=== PATIENT | female | born 1990 | race Caucasian/White ===

== ENCOUNTER → 2019-08-03 10:06 | Outpatient (CLI) | payer OTHER, SELFPAY ==
[2019-08-03 09:11] VITALS: BMI 23.6
[2019-08-03 10:57] LABS: Absolute Lymphocyte Count 1.35 X10^3/uL (0.83-4.51); Absolute Neutrophil Count 5.3 X10^3/uL (2.0-7.7); Basophil# 0.01 X10^3/uL; Basophil% 0.1 % (0-1); Eosinophil# 0.02 X10^3/uL; Eosinophils% 0.3 % (0-5); Hematocrit 39.4 % (37-47); Hemoglobin 13.2 g/dL (12.0-15.0); Lymphocyte # 1.35 X10^3/ul (4.0); Lymphocyte % 18.7 % (19-41); Mean Corp Hgb Conc 33.5 g/dL (32-36); Mean Corpuscular Hgb 29.9 pg (27.0-32.0); Mean Corpuscular Volume 89.1 fL (81-99); Mean Platelet Vol. 10.8 fl (6.2-12.0); Monocyte# 0.47 X10^3/uL; Monocyte% 6.5 % (0-10); NRBC Flagged by Analyzer 0 % (0-5); Neutrophil # 5.33 X10^3/uL (2.7-7.7); Platelet Count 173 K/mm3 (150-450); RBC Distribution Width CV 12.2 % (11.6-14.6); RBC Distribution Width SD 39.9 fl (35.1-43.9); Red Blood Count 4.42 M/mm3 (4.2-5.4); White Blood Count 7.2 K/mm3 (4.4-11.0)
[2019-08-03 11:28] LABS: T4 Free Direct 1.02 ng/dL (0.76-1.46); Thyroid Stim Hormone (TSH) 2.37 uIU/mL (0.358-3.74)
[2019-08-03 12:12] LABS: HIV - WCH Non-Reactive (Nonreactive); Hepatitis B Surface Antigen Non-Reactive (Nonreactive); Hepatitis C Antibody Non-Reactive (Nonreactive); Rubella IgG 43.2 IU/mL
[2019-08-03 18:36] LABS: Amphetamine Urine VISTA NEGATIVE (<1000 ng/mL); Barbiturate Urine VISTA NEGATIVE (< 200 ng/mL); Benzodiazepine Urine VISTA NEGATIVE (< 200 ng/mL); Cocaine Urine VISTA NEGATIVE (< 300 ng/mL); Ecstacy Urine VISTA NEGATIVE (< 500 ng/mL); Methadone Urine VISTA NEGATIVE (< 300 ng/mL); PCP Urine VISTA NEGATIVE (< 25 ng/mL); THC Urine VISTA NEGATIVE (< 50 ng/mL); Vista UDS pH Range 7
[2019-08-03 21:47] LABS: Chlamydia Trachomatis by PCR Negative (Negative); Neisserai gonorrhoeae by PCR Negative (Negative); Probe Check PASS; Sample Adequacy Control PASS; Specimen Processing Control PASS
[2019-08-08 19:57] LABS: HPV Reflexed? NOT INDICATED
[2019-08-10 02:30] LABS: Rapid Plasmin Reagin (RPR) NONREACTIVE (NONREACTIVE)
== END ==
PROVIDERS: Referring Provider Obstetrics & Gynecology; Visit Provider Obstetrics & Gynecology
DX: Z34.00 Encounter for supervision of normal first pregnancy, unspecified trimester (principal); R79.89 Other specified abnormal findings of blood chemistry; Z12.4 Encounter for screening for malignant neoplasm of cervix
CPT/HCPCS: 36415; 80307; 84439; 84443; 85025; 86592; 86703; 86762; 86803; 86850; 86900; 86901; 87086; 87088; 87340; 87491; 87591; 88175; G0145

== ENCOUNTER → 2019-08-31 | Outpatient (CLI) | payer OTHER, SELFPAY ==
[2019-08-31 08:54] VITALS: BMI 23.6
== END | disposition home or self-care (01) ==
LOC: LABSPEC 13:11
PROVIDERS: Referring Provider Nurse Practitioner Women's Health; Visit Provider Nurse Practitioner Women's Health
DX: B37.3 Candidiasis of vulva and vagina (principal)
CPT/HCPCS: 87086; 87088

== ENCOUNTER → 2019-11-16 08:05 | Outpatient (CLI) | payer OTHER, SELFPAY ==
[2019-10-19 11:28] VITALS: BMI 23.6
[2019-11-16 09:05] LABS: ALB/GLOB Ratio 0.9 RATIO (0.9-2.4); AST(SGOT) 15 U/L (15-37); Alanine Aminotransfer ALT/SGPT 25 U/L (13-56); Alkaline Phosphatase 47 U/L (45-117); Anion Gap 3 (5-15); BUN 5 mg/dL (7-18); BUN/Creat Ratio 8.4 RATIO (10-20); Calcium,Total 8.2 mg/dL (8.5-10.1); Chloride 108 mmol/L (98-107); EST Glomerular Filtration Rate 128 mL/min (>60); Est Glom Filt Rate - Afr Amer 155 mL/min (>60); Globulin 3.4 g/dL (2.2-4.2); Glucose 78 mg/dL (74-106); Potassium 3.9 mmol/L (3.5-5.1); Protein, Total 6.4 g/dL (6.4-8.2); Sodium Level 138 mmol/L (136-145)
== END ==
PROVIDERS: Referring Provider Nurse Practitioner Women's Health; Visit Provider Nurse Practitioner Women's Health
DX: R10.11 Right upper quadrant pain (principal)
CPT/HCPCS: 36415; 80053

== ENCOUNTER → 2019-11-21 08:17 | Outpatient (CLI) | payer OTHER, SELFPAY ==
[2019-10-19 11:28] VITALS: BMI 23.6
--- NOTE | 2019-11-21 08:18 | US_ITS ---
STUDY: ABDOMINAL ULTRASOUND - RIGHT UPPER QUADRANT REASON FOR VISIT: Female, 29 years old RUQ PAIN -- 24 WEEKS PREG TECHNIQUE: Ultrasound evaluation of the right upper quadrant was performed with real-time and static foster-scale imaging. TECHNICAL QUALITY: Adequate. COMPARISON: None. FINDINGS: Liver: The liver measures 14.5 cm. There is normal echogenicity of the liver. The bile ducts are within normal limits. There is hepatic color flow. The direction of portal flow is hepatopetal. There is no demonstrated mass lesion. Gallbladder: Normal distended gallbladder. The gallbladder wall measures 2.3 mm. There is a negative sonographic Briceno''s sign. There is no pericholecystic fluid. There are no gallstones. There is a 8 mm x 9 mm x 6 mm polyp in the neck of the gallbladder. Common Bile Duct (C.B.D.): The common bile duct measures 2.4 mm. Pancreas: Normal size of the head, body and tail of the pancreas. There is normal echogenicity of the pancreas. There is no demonstrated pancreatic mass or cyst. Right Kidney: Normal size of the right kidney. The right kidney measures 10.7 cm x 5.8 cm x 4.3 cm. Normal renal cortex. The right cortex measures 1.1 cm. There is no demonstrated renal mass or cyst. There is no right hydronephrosis. US/Gallbladder IMPRESSION: 8 mm x 9 mm x 6 mm gallbladder polyp in the region of the neck of the gallbladder. Electronically Signed: Elvis Quintero, at 9:10 EDT , Service support ,
== END ==
PROVIDERS: Referring Provider Nurse Practitioner Women's Health; Visit Provider Nurse Practitioner Women's Health
DX: R10.11 Right upper quadrant pain (principal)
CPT/HCPCS: 76705

== ENCOUNTER → 2019-12-20 07:50 | Outpatient (CLI) | payer OTHER, SELFPAY ==
[2019-11-23 08:48] VITALS: BMI 23.6
--- NOTE | 2019-12-20 07:51 | US_ITS ---
STUDY: SECOND AND THIRD TRIMESTER OBSTETRICAL ULTRASOUND REASON FOR EXAM: Female, 29 years old growth LMP: 06/06/2019. TECHNIQUE: Transabdominal TECHNICAL QUALITY: Adequate. PRIOR ULTRASOUND: None. FINDINGS: There is a single intrauterine fetus. The fetus is in a cephalic presentation. There is demonstrated cardiac activity with a heart rate of 140 bpm. There is a normal amniotic fluid volume. The largest amniotic fluid pocket measures 3.3 cm. The amniotic fluid index (SAMARA) is 11.6 cm. The placenta is posterior in location and is not low lying. There are Grade 0 placental changes. The cervix measures 4.1 cm in length. The adnexal regions are not visualized. BIOMETRY: BPD: 7.1 cm: 28 weeks, 3 days HC: 26.7 cm: 29 weeks, 0 days AC: 25 cm: 29 weeks, 1 days FL: 5.1 cm: 27 weeks, 1 days CI: 75% FL/BPD: 72% FL/HC: FL/AC: 20% HC/AC: 1.07 age by current US: 28 weeks, 3 days. BHAVESH by current US: 03/10/2020. Estimated weight: 1232 grams, +/- 182 grams, 50 %. Age by LMP: 28 weeks, 0 days. BHAVESH by LMP: 03/13/2020. US/OB Limited With Biometrics IMPRESSION: Single live intrauterine gestation with a mean gestational age of 28 weeks and 3 days. Electronically Signed: Elvis Quintero, at 11:59 EDT , Service support ,
== END ==
PROVIDERS: Referring Provider Obstetrics & Gynecology; Visit Provider Obstetrics & Gynecology
DX: O44.03 Complete placenta previa NOS or without hemorrhage, third trimester (principal); Z3A.28 28 weeks gestation of pregnancy
CPT/HCPCS: 76816

== ENCOUNTER → 2019-12-21 08:46 | Outpatient (CLI) | payer OTHER, SELFPAY ==
[2019-11-23 08:48] VITALS: BMI 23.6
[2019-12-21 09:24] LABS: Absolute Lymphocyte Count 1.44 X10^3/uL (0.83-4.51); Absolute Neutrophil Count 7.4 X10^3/uL (2.0-7.7); Basophil# 0.02 X10^3/uL; Basophil% 0.2 % (0-1); Eosinophil# 0.07 X10^3/uL; Eosinophils% 0.7 % (0-5); Hematocrit 38.1 % (37-47); Hemoglobin 12.4 g/dL (12.0-15.0); Lymphocyte # 1.44 X10^3/ul (4.0); Lymphocyte % 15.1 % (19-41); Mean Corp Hgb Conc 32.5 g/dL (32-36); Mean Corpuscular Hgb 30.5 pg (27.0-32.0); Mean Corpuscular Volume 93.6 fL (81-99); Mean Platelet Vol. 10.3 fl (6.2-12.0); Monocyte# 0.49 X10^3/uL; Monocyte% 5.1 % (0-10); NRBC Flagged by Analyzer 0 % (0-5); Neutrophil # 7.44 X10^3/uL (2.7-7.7); Neutrophil % 77.9 % (47-70); Platelet Count 150 K/mm3 (150-450); RBC Distribution Width CV 12.6 % (11.6-14.6); RBC Distribution Width SD 43.4 fl (35.1-43.9); Red Blood Count 4.07 M/mm3 (4.2-5.4); White Blood Count 9.6 K/mm3 (4.4-11.0)
[2019-12-21 09:41] LABS: Glucose Challenge Gest 1H 50g 127 mg/dL (70-140); Thyroid Stim Hormone (TSH) 2.45 uIU/mL (0.358-3.74)
== END ==
PROVIDERS: Referring Provider Obstetrics & Gynecology; Visit Provider Obstetrics & Gynecology
DX: Z34.00 Encounter for supervision of normal first pregnancy, unspecified trimester (principal); R79.89 Other specified abnormal findings of blood chemistry
CPT/HCPCS: 36415; 82950; 84443; 85025

== ENCOUNTER → 2020-02-07 | Outpatient (CLI) | payer OTHER, SELFPAY ==
[2020-01-26 11:30] VITALS: BMI 29.7
== END | disposition home or self-care (01) ==
LOC: LABSPEC 17:56
PROVIDERS: Referring Provider Obstetrics & Gynecology; Visit Provider Obstetrics & Gynecology
DX: U07.1 COVID-19 (principal)
CPT/HCPCS: 87635; C9803; U0003

== ENCOUNTER → 2020-02-20 07:48 | Outpatient (CLI) | payer OTHER, SELFPAY ==
[2020-01-26 11:30] VITALS: BMI 29.7
--- NOTE | 2020-02-20 07:49 | US_ITS ---
STUDY: SECOND AND THIRD TRIMESTER OBSTETRICAL ULTRASOUND - LIMITED REASON FOR EXAM: Female, 29 years old GROWTH -- PATIENT TESTED POSITIVE FOR COVID 13 DAYS AGO PRIOR ULTRASOUND: 12/20/2019 TECHNIQUE: Transabdominal ultrasound imaging was performed. TECHNICAL QUALITY: Adequate. FINDINGS: There is a single intrauterine fetus. The fetus is in a cephalic presentation. There is demonstrated cardiac activity with a heart rate of 147 bpm. There is a normal amniotic fluid volume. The largest amniotic fluid pocket measures 4.21 x 8.6 cm. The amniotic fluid index (SAMARA) is 13.6 cm. The placenta is posterior and not low lying. There are Grade 1 placental changes. The cervix measures 3.3 cm in length. BIOMETRY: BPD: 9.1: 36 weeks, 6 days HC: 33.12: 37 weeks, 5 days AC: 32.70: 36 weeks, 4 days FL: 6.99: 35 weeks, 6 days Age by LMP: 36 weeks, 6 days. BHAVESH by LMP: 03/13/2020. age by prior US: 37 weeks, 3 days. BHAVESH by prior US: 03/10/2020. age by current US: 36 weeks, 4 days. BHAVESH by current US: 03/15/2020. Estimated weight: 2987 grams, +/- 442 grams, 49.01 percentile. US/OB Limited With Biometrics IMPRESSION: A single fetus is noted in cephalic presentation with a gestational age of 37 weeks 3 days based upon the most recent ultrasound. Electronically Signed: Suraj Elder, at 15:06 EST Tel , Service support ,
== END ==
PROVIDERS: Referring Provider Obstetrics & Gynecology; Visit Provider Obstetrics & Gynecology
DX: O98.519 Other viral diseases complicating pregnancy, unspecified trimester (principal); U07.1 COVID-19; Z3A.00 Weeks of gestation of pregnancy not specified
CPT/HCPCS: 76816

== ENCOUNTER → 2020-02-21 | Outpatient (CLI) | payer OTHER, SELFPAY ==
[2020-02-21 08:25] VITALS: BMI 30.2
== END | disposition home or self-care (01) ==
LOC: LABSPEC 13:15
PROVIDERS: Referring Provider Obstetrics & Gynecology; Visit Provider Obstetrics & Gynecology
DX: Z34.93 Encounter for supervision of normal pregnancy, unspecified, third trimester (principal); Z3A.36 36 weeks gestation of pregnancy
CPT/HCPCS: 87077; 87081; 87186

== ENCOUNTER → 2020-03-08 10:26 | Outpatient (CLI) | payer OTHER, SELFPAY ==
[2020-01-26 11:30] VITALS: BMI 29.7
[2020-03-08 08:07] VITALS: BMI 31.0
== END ==
PROVIDERS: Obstetrics & Gynecology; Visit Provider Obstetrics & Gynecology
DX: Z34.90 Encounter for supervision of normal pregnancy, unspecified, unspecified trimester (principal)
CPT/HCPCS: 87635; C9803; U0003

== ENCOUNTER 2020-03-19 15:10 | Inpatient (IN) | payer OTHER, SELFPAY ==
[2020-03-15 09:05] VITALS: BMI 31.4
[2020-03-19] VITALS (40 sets, daily range): BP systolic 117–157; BP diastolic 69–97; PULSE 73–208; TEMP 36.1–37; O2SAT 82–100; BMI 31.7
[2020-03-19 15:08] LABS: ROM Internal Control Test YES-OK TO RESULT pt. (Internal QC)
[2020-03-19 15:09] LABS: ROM Patient Test POSITIVE (Negative)
[2020-03-19] MEDS: Lactated Ringers 1,000 ML 50 ML IV (17:30)
[2020-03-19] MEDS: miSOPROStol 25 MCG TABLET VAGINAL (17:41)
[2020-03-19 17:56] LABS: Absolute Lymphocyte Count 1.97 X10^3/uL (0.83-4.51); Absolute Neutrophil Count 9.7 X10^3/uL (2.0-7.7); Basophil# 0.03 X10^3/uL; Basophil% 0.2 % (0-1); Eosinophil# 0.04 X10^3/uL; Eosinophils% 0.3 % (0-5); Hemoglobin 13.6 g/dL (12.0-15.0); Lymphocyte # 1.97 X10^3/ul (4.0); Lymphocyte % 15.8 % (19-41); Mean Corp Hgb Conc 32.4 g/dL (32-36); Mean Corpuscular Hgb 30.3 pg (27.0-32.0); Mean Corpuscular Volume 93.5 fL (81-99); Monocyte# 0.59 X10^3/uL; Monocyte% 4.7 % (0-10); NRBC Flagged by Analyzer 0 % (0-5); Neutrophil # 9.72 X10^3/uL (2.7-7.7); Neutrophil % 78.3 % (47-70); Platelet Count 165 K/mm3 (150-450); RBC Distribution Width CV 12.6 % (11.6-14.6); RBC Distribution Width SD 43.6 fl (35.1-43.9); Red Blood Count 4.49 M/mm3 (4.2-5.4); White Blood Count 12.4 K/mm3 (4.4-11.0)
[2020-03-19] MEDS: Lactated Ringers 500 ML 999 ML IV (20:13)
[2020-03-19] MEDS: fentaNYL-bupivacaine (epidural) 100 ML BAG EPIDURAL (21:08)
[2020-03-19] MEDS: Oxytocin 30 units/NS 500 ml 30 UNITS/500 ML IV.SOLN IV (22:05)
[2020-03-20] VITALS (41 sets, daily range): BP systolic 107–148; BP diastolic 58–91; PULSE 75–183; RESP 16; TEMP 36.1–37.3; O2SAT 84–100
--- NOTE | 2020-03-20 01:10 | HP.PCM_ITS ---
- Problem List (1) PROM (premature rupture of membranes) Status: Acute (2) 36 weeks gestation of Status: Acute Comment: electronic covid test ordered 02/14/2020 (scheduled for 03/08/2020 at 0910) 03/08 test negative (3) Anxiety Status: Acute Comment: sees counseling, no meds. stable. (4) COVID-19 virus detected Status: Acute Comment: 02/06. ASA and growth US. adequate growth 02/19 US (5) Elevated TSH Status: Acute Comment: TSH 08/03/19 WNL, check q trimester(nl 12/21/19) (6) Influenza vaccine administered Status: Acute Comment: 12/21/2019 (7) Positive GBS test Status: Acute Comment: PCN in labor (8) Status: Acute Qualifiers: Comment: declined genetic, carrier and NTD. anatomy reviewed. 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 Jessica Gordon MD) adopted: No household members: spouse housing: house current occupational status: employed current occupation: Marketing current occupational exposures/hazards: No pets and animals: Yes history of recent travel: No sexually active: Yes Smoking Status: Never smoker second hand exposure: No alcohol intake: current details: social substance use type: does not use caffeine: Yes what type of physical activity do you participate in: walking seatbelt use: always do you feel safe at home: Yes additional social history: [employer] Patient works in [employer] Pregancy History 1 Elective abortions Hx Para Spontaneous abortions Hx # Term Pregnancies Ectopic pregnancies Hx # Pregnancies Multiple births # of living children HPI 40WK OB: Details: AJ NAVARRO is a 29 year old who presents at 40w6d with clear SROM no regualr contractions. OB Visit BHAVESH Calculator Estimated Delivery Date Method Current WG Current Estimate 03/13/20 LMP (Certain) 40w 2d Other Estimates 03/11/20 Ultrasound #1 40w 4d Expected Delivery Route/Plan - IOL 03/19 at 1900 with FB/cytotec Labor Preferences- labor support person: Leon pain management options preferred: epidural cut cord/dad catch: cord : yes PP control planned: [] discussed possible routes of delivery and associated risks: discussed possible delivery modalities and possible indications for each including R/B/A of , VAVD, FAVD, and CS. questions answered. special requests: none Specific Issue/Plans flu vaccine: given tdap vaccine: given rhogam: na LARC form signed: yes movement and labor precautions reviewed. Problem list reviewed and updated with the most current plan of care details and appropriate orders placed. Relevant counseling for the gestational age provided. Continue routine care and follow up unless otherwise noted in visit notes/problem list details Initial Weight: 143 lb Date EGA Weight BP Urine Prot Glucose FHR FuHt Pres Dilation Effaced St Visit Note 08/31/19 12w 1d 144 lb (+16 oz) 110/70 Negative Negative 150 MH-No VB, LOF. Doing well MH-No VB, LOF. Doing well Repeat urine culture 09/28/19 16w 1d 145 lb 8 oz (+2 lb 8 oz) 130/70 Negative Negative 145 SM- no vb cramping declined afp screening. anatomy scan scheduled 10/19/19 19w 1d 149 lb 4 oz (+6 lb 4 oz) 138/86 Negative Negative 138 MH-No VB, LOF. Feeling some movement. Completed anatomy scan today:plans gender reveal. MH-No VB, LOF. Feeling some movement. Completed anatomy scan today:plans gender reveal. CB classes encouraged 11/23/19 24w 1d 158 lb 4 oz (+15 lb 4 oz) 134/78 Negative Negative 140 24 SM- discussed fu imaging, ordered cbc gct. going on trip to [facility] next week 12/21/19 28w 1d 168 lb (+25 lb) 116/86 Negative Negative 164 28 MH-no VB, LOF. Good FM. Previa resolved. Nl 28 wk labs and TSH today. Flu and tdap 01/16/20 31w 6d 173 lb 8 oz (+30 lb 8 oz) 124/70 Negative Negative 145 31 MH-Vaginal itching. Exam confirms yeast. Enc monistat. Good FM. No VB, LOF. 01/26/20 33w 2d 173 lb (+30 lb) 134/60 Negative Negative 140 33 SM- no vb lof good fm no regular ctx 02/21/20 37w 0d 176 lb (+33 lb) 130/84 Negative Negative 140 37 Cephalic 0 40 -2 GP - no LOF, VB, DFM, reg ctx. GBS done today. 02/29/20 38w 1d 179 lb (+36 lb) 124/84 Negative Negative 140 38 Cephalic 0 50 -2 GP - no LOF, VB, DFM, ctx. GBS positive. Discussed IOL at 41 weeks if no labor. Labor precautions reviewed. 03/08/20 39w 2d 181 lb (+38 lb) 122/88 Negative Negative 140 39 Cephalic 1 50 -2 SM- no vb lof good fm no regular ctx 03/15/20 40w 2d 183 lb (+40 lb) 138/82 Negative Negative 130 40 Cephalic 1 50 -2 GP - no LOF, VB, DFM, reg ular ctx. Membranes swept today. Scheduled for IOL Wednesday. ACOG First Trimester First Trimester: Desire for , Alcohol, Tobacco Cessation, Illicit/Recreational Drug/Substance Use, Intimate Partner Violence, Barriers to care, Unstable Housing, Communication Barriers, Environmental/Work Hazards, Anticipated Course of Care, Toxoplasmosis Precations, Use of Any medications, Sexual activity, Exercise, Dental Care, Sauna/Hot tub use, Seat Belt use, Childbirth classes/Hospital facilities, Travel, Indications for US and Screening for Aneuploidy; discussed Diagnostics Diagnostics Diagnostics Glucose 1 Hr 50 gm 127 mg/dL (70-140) 12/21/19 Hgb 12.4 g/dL (12.0-15.0) 12/21/19 Hct 38.1 % (37-47) 12/21/19 Details: HIV: Urine Culture: Sequential Screen: NIPT Screen: ROS Const Reports system reviewed and no additional complaints, except as docu Eyes Reports system reviewed and no additional complaints, except as docu ENT Reports system reviewed and no additional complaints, except as docu Card Reports system reviewed and no additional complaints, except as docu Resp Reports system reviewed and no additional complaints, except as docu GI Reports system reviewed and no additional complaints, except as docu Reports system reviewed and no additional complaints, except as docu, Denies abnormal vaginal bleeding, Denies painful urination, Denies pelvic pain, Denies vaginal discharge, Denies vaginal odor, Denies vaginal itching Musc Reports system reviewed and no additional complaints, except as docu Skin/Breast Reports system reviewed and no additional complaints, except as docu Neuro Yes system reviewed and no additional complaints, except as docu Psych Reports system reviewed and no additional complaints, except as docu Exam Const General: cooperative, healthy appearing, comfortable, no acute distress, well developed, well groomed Nutritional Appearance: average body habitus, well nourished Orientation: alert, awake, oriented x3 HENMT Head: normal to inspection, normocephalic, atraumatic Eyes Pupils: PERRL, accommodation normal Resp Effort & Inspection: normal respiratory effort, able to speak in complete sentences, symmetric chest movement Cardio Rate: regular rate GI Palpation: soft, no guarding, no masses, nontender Skin General: no rashes or lesions noted, elasticity normal, turgor normal Neuro General: alert, awake, oriented x3 Cranial Nerves: CN's II-XI intact bilaterally, sense of smell intact, PERRL, accommodation normal, EOM intact bilaterally Speech: speech normal Gait: normal gait Psych Appearance: grossly normal, well kempt Mental Status: mental status grossly normal Mood: congruent mood Affect: normal affect Speech and Movement: speech and movement normal Attitude: cooperative Thought Process: normal Thought Content: normal Judgment: judgment good Results POC Urinalysis 2 Dip (Clinic) Office Urine Glucose Negative Last Edit by Aurora Lindsey on 03/15/20 09:13 Office Urine Protein Negative Last Edit by Aurora Lindsey on 03/15/20 09:13 Assessment & Plan Problems 1. Positive GBS test B95.1 PCN in labor 2. 36 weeks gestation of Z3A.36 electronic covid test ordered 02/14/2020 (scheduled for 03/08/2020 at 0910) 03/08 test negative 3. COVID-19 virus detected U07.1 02/06. ASA and growth US. adequate growth 02/19 US 4. Influenza vaccine administered Z23 12/21/2019 5. Elevated TSH R79.89 TSH 08/03/19 WNL, check q trimester(nl 12/21/19) 6. Anxiety F41.9 sees counseling, no meds. stable. 7. Encounter for supervision of normal first in third trimester Z34.03 PRR BHAVESH 03/13/2020 girl Spouse: Leon 8. 40 weeks gestation of Z3A.40 declined genetic, carrier and NTD. anatomy reviewed. @ 40W6D PRESENTS with PROM Patient presents IOL, plan management for with cytotec then pitocin Pain management: plans epidural. GBS positive- antibiotics started Management of any complications: none I have reviewed the [facility] and made any clinically relevant updates. Orders Orders: POC Urinalysis 2 Dip (Clinic) Today Coding Level of Care Code OB Routine Diagnoses Positive GBS test B95.1 36 weeks gestation of Z3A.36 COVID-19 virus detected U07.1 Influenza vaccine administered Z23 Elevated TSH R79.89 Anxiety F41.9 Encounter for supervision of normal first in third trimester Z34.03 ??Trimester: third trimester 40 weeks gestation of Z3A.40 ??Weeks of gestation: 40 weeks
[2020-03-20] MEDS: fentaNYL-bupivacaine (epidural) 100 ML BAG EPIDURAL ×2 (01:15→06:10)
[2020-03-20] MEDS: Lactated Ringers 500 ML 999 ML IV (02:09)
[2020-03-20] MEDS: Lactated Ringers 1,000 ML 200 ML IV (02:40)
--- NOTE | 2020-03-20 08:36 | PCM.OPRPT ---
Problem List (1) PROM (premature rupture of membranes) Status: Acute (2) 36 weeks gestation of Status: Acute Comment: electronic covid test ordered 02/14/2020 (scheduled for 03/08/2020 at 0910) 03/08 test negative (3) Anxiety Status: Acute Comment: sees counseling, no meds. stable. (4) COVID-19 virus detected Status: Acute Comment: 02/06. ASA and growth US. adequate growth 02/19 US (5) Elevated TSH Status: Acute Comment: TSH 08/03/19 WNL, check q trimester(nl 12/21/19) (6) Influenza vaccine administered Status: Acute Comment: 12/21/2019 (7) Positive GBS test Status: Acute Comment: PCN in labor (8) Status: Acute Qualifiers: Comment: declined genetic, carrier and NTD. anatomy reviewed. (9) Supervision of normal first Status: Acute Qualifiers: Comment: PRR BHAVESH 03/13/2020 girl Spouse: Leon Vaginal Delivery Maternal Presentation: Active Labor, Spontaneous Rupture of Membranes PROM 41 weeks 1 cm dilated Method of Induction: Pitocin, Cytotec Amniotic Membrane Rupture Type: Spontaneous at home Amniotic Fluid Description: Clear Final BHAVESH: 03/13/20 Gestational age: 41 Weeks and 0 Days Date of Procedure: 03/20/20 Pre-Operative Diagnosis: prom Post-Operative Diagnosis: same Surgery/ Procedure Performed: Spontaneous Vaginal Delivery Type of Anesthesia: Epidural Description of Procedure: Patient began pushing and delivered the head in the CATRINA presentation. The head was delivered atraumatically and broad shoulders were noted to come down transverse which rotated spontaneously to right shoulder anterior with the patient pushing and an audible pop was heard with the restitution. Gentle downward traction was applied to the head to await delivery of the shoulder. The anterior and posterior shoulders delivered without complication followed by the rest of the infant and the was placed on the maternal abdomen. Delayed cord clamping was employed for approximately 60 seconds. Cord was clamped and cut and gentle traction was applied to the cord and the placenta delivered spontaneously immediately following it was noted to be intact with three-vessel cord. The perineum and vagina were inspected and noted to have a first degree laceration repaired in the usual fashion with 3-0 vicryl rapide. EBL was 200 cc. Patient and tolerated delivery well. Presentation: CATRINA Placental Delivery Description: Spontaneous Placenta Disposition: [facility] Cord Vessel Description: 3 Vessels Cord Entanglement: None Estimated Blood Loss: 200 Infant A gender: Female Episiotomy Description: None Laceration: Perineal Extension/lac, 1st degree Medications given after delivery: IV Pitocin Complications: None Multi Select Codes - Urinary/Genital Urinary/Genital CPT Codes: 03980 Vaginal Delivery [facility]
[2020-03-20] MEDS: Oxytocin 30 units/NS 500 ml 30 UNITS/500 ML IV.SOLN 334 UNITS IV (09:09)
[2020-03-20] MEDS: Methylergonovine 0.2 MG/ML Ampul IM (09:56)
[2020-03-20] MEDS: Acetaminophen 500 MG Tablet 1000 MG PO (16:45)
[2020-03-20] MEDS: Senna/Docusate Sodium 1 Tablet PO (16:45)
[2020-03-21 00:18] VITALS: BP 122/82; PULSE 86; RESP 16; TEMP 36.2
--- NOTE | 2020-03-21 00:20 | NURSING ---
this RN and donta RN able to palpate fundus 1 below midline, but also reaching toward right of midline. pt reports feeling tender upon palpation of fundus. bleeding WNL. pt recently able to ambulate to BR and void to empty bladder. bladder nondistended. will continue to monitor.
[2020-03-21] MEDS: Acetaminophen 500 MG Tablet 1000 MG PO (01:30)
[2020-03-21 04:31] VITALS: BP 125/89; PULSE 95; RESP 16; TEMP 36.3
[2020-03-21 08:00] VITALS: BP 127/90; PULSE 85; RESP 16; TEMP 36.1
[2020-03-21] MEDS: Dibucaine 30 GM Tube 1 APPLIC TOPICAL (08:25)
[2020-03-21] MEDS: Senna/Docusate Sodium 1 Tablet PO (08:29)
[2020-03-21] MEDS: Naproxen 250 MG Tablet 500 MG PO (08:29)
--- NOTE | 2020-03-21 09:22 | DCINST_ITS ---
Discharge Diet: No Restrictions Discharge Activity: Return to Normal Activity, May not drive while taking narcotic pain medications., May Shower May resume sexual activity in: 4-6 weeks Call your doctor if your incision/area has: Continuous Slow Oozing, Sudden Increased Bleeding, Increased Pain/ Swelling, Increased Redness, Foul Smelling Discharge Additional Instructions: If you experience any of the following, contact your healthcare provider. * Bleeding that soaks a pad every hour for 2 hours * Fever 100.4 or higher * Unrelieved incision or abdominal pain * Swelling, redness, discharge or bleeding from your incision or episiotomy site * Your incision begins to separate * Problems urinating (including inability to urinate or burning while urinating). * Visual changes * Severe headache * Flu-like symptoms * Pain or redness in one of both of your breasts * Pain, warmth, tenderness or swelling in your legs, especially the calf area * Frequent nausea and vomiting * Symptoms of depression or anxiety If you experience any of the following, call 911 or go to the nearest Emergency Room. * Chest pain * Problems breathing * Seizure activity * Partial or complete paralysis of a body part, slurred speech, weakness or drooping of the face, or a sudden inability to walk or hold your balance Allergies/Adverse Reactions: Allergies No Known Allergies Allergy (Verified 03/19/20 16:34) Medications to take at Discharge multivitamin no.47-iron fum 27 mg-folate no.1 1 mg-dha 300 mg capsule 1 cap PO DAILY 08/03/19 aspirin 81 mg chewable tablet 81 mg PO DAILY 02/21/20 Naproxen [Naprosyn] 250 - 500 mg PO Q8H PRN PRN #30 tab 03/21/20 The following prescriptions were given: Naproxen [Naprosyn] 250 - 500 mg PO Q8H PRN PRN #30 tab PRN Reason: MILD PAIN Transmission Status: Pending to [facility] Please Follow Up With: Ivana Lord MD - [phone] When: Call to make an appointment with your doctor in 6 weeks. If you had elevated Blood pressure or 4th degree laceration you will need to be seen in 2 weeks. Primary Care Physician: DANIELLE NAVAS [Other] Test Results: Test results from this visit will be discussed in further detail at your follow- up appointment, if applicable.
--- NOTE | 2020-03-21 09:22 | PCM.PN.OB ---
Patient Problems: Active and Suspected Problems (Last Reviewed 03/15/20 @ 09:05 by Aurora Lindsey) PROM (premature rupture of membranes) (Acute) Positive GBS test (Acute) PCN in labor 36 weeks gestation of (Acute) electronic covid test ordered 02/14/2020 (scheduled for 03/08/2020 at 0910) 03/08 test negative COVID-19 virus detected (Acute) 02/06. ASA and growth US. adequate growth 02/19 US Influenza vaccine administered (Acute) 12/21/2019 Elevated TSH (Acute) TSH 08/03/19 WNL, check q trimester(nl 12/21/19) Anxiety (Acute) sees counseling, no meds. stable. Supervision of normal first (Acute) PRR BHAVESH 03/13/2020 girl Spouse: Leon (Acute) declined genetic, carrier and NTD. anatomy reviewed. Subjective: Patient doing well without complaints. Tolerating PO. Ambulating and voiding without difficulty. feeding well. Denies chest pain, shortness of breath, calf pain/swelling, fevers, chills, lightheadedness. - Physical Exam Vitals/I&O's: Vital Signs Temp Pulse Resp BP Pulse Ox 97 F L 85 16 127/90 H 99 03/21/20 08:00 03/21/20 08:00 03/21/20 08:00 03/21/20 08:00 03/20/20 16:47 Oxygen Delivery Method Room Air Weight: 184 lb 11.958 oz Body Mass Index (BMI) 31.7 Intake and Output for Last 24 Hours 03/19/20 03/20/20 03/21/20 23:59 23:59 23:59 Intake Total 747.51 / 747.51 4574.30 / 4574.30 Output Total 2600 / 2600 Balance 747.51 / 747.51 1974.30 / 1974.30 General: Alert, Oriented x3 Microbiology Past 72 Hours 03/19/20 20:35 Mucosa - Nose SARS-CoV-2 Antigen (Rapid) - Final Current Medications Acetaminophen (Acetaminophen 500 Mg Tablet) 1,000 mg PO Q8H PRN PRN PRN Reason: Pain Score 1-3 Last Admin: 03/21/20 01:30 Dose: 1,000 mg Documented by: Bisacodyl (Bisacodyl 10 Mg Suppository) 10 mg RECTAL UD PRN PRN Reason: If no BM Dibucaine (Dibucaine 30 Gm Tube) 1 applic TOPICAL TID PRN PRN; Protocol PRN Reason: Discomfort Last Admin: 03/21/20 08:25 Dose: 1 oint Documented by: Hydrocortisone (Hydrocortisone 2.5% Crm) 1 applic TOPICAL TID PRN PRN; Protocol PRN Reason: Discomfort Methylergonovine Maleate (Methylergonovine 0.2 Mg/Ml Ampul) 0.2 mg IM X1 PRN PRN Reason: Excess bleeding/uterine atony Last Admin: 03/20/20 09:56 Dose: 0.2 mg Documented by: Naproxen (Naproxen 250 Mg Tablet) 500 mg PO Q8H PRN PRN PRN Reason: Pain Score 1-3 Last Admin: 03/21/20 08:29 Dose: 500 mg Documented by: Ondansetron HCl (Ondansetron 4 Mg/2 Ml Vial) 4 mg IV Q4H PRN PRN PRN Reason: Nausea Oxycodone HCl (Oxycodone 5 Mg Tablet) 5 - 10 mg PO Q4H PRN PRN PRN Reason: Pain Score 4-10 Senna/Docusate Sodium (Senna/Docusate Sodium 1 Tablet) 1 - 2 tablet PO DAILY PRN PRN PRN Reason: Constipation Last Admin: 03/21/20 08:29 Dose: 2 tablet Documented by: Simethicone (Simethicone 80 Mg Tablet) 80 mg PO PCHS PRN PRN Reason: Indigestion/Stomach pain Sodium Chloride (0.9% Saline Lock 10 Ml Syringe) 5 - 15 ml IV UD PRN PRN Reason: SALINE FLUSH Medical Necessity - Tobacco Use Smoking Status: Never smoker Assessment/Plan All Active Problems (Last Reviewed 03/15/20 @ 09:05 by Aurora Lindsey) PROM (premature rupture of membranes) (Acute) Positive GBS test (Acute) 36 weeks gestation of (Acute) COVID-19 virus detected (Acute) Influenza vaccine administered (Acute) Elevated TSH (Acute) Anxiety (Acute) Supervision of normal first (Acute) (Acute) s/p PPD # 1 1. routine post delivery care 2. breast feeding- support given 3. rh positive 4. rubella immune
== END 2020-03-21 10:30 | disposition home or self-care (01) | DRG 807 ==
LOC: WPOUT 15:15 → WP 15:15
PROVIDERS: Admitting Provider Obstetrics & Gynecology; Referring Provider Obstetrics & Gynecology; Visit Provider Obstetrics & Gynecology
DX: O42.92 Full-term premature rupture of membranes, unspecified as to length of time between rupture and onset of labor (principal); O70.0 First degree perineal laceration during delivery; O99.824 Streptococcus B carrier state complicating childbirth; Z79.82 Long term (current) use of aspirin; Z79.899 Other long term (current) drug therapy; Z3A.41 41 weeks gestation of pregnancy; Z37.0 Single live birth
CPT/HCPCS: 59025; 59050; 84112; 85025; 86850; 86900; 86901; 87426; 99218; J7120; G0378

== ENCOUNTER 2020-03-28 12:14 | Observation (INO) | payer OTHER, SELFPAY ==
[2020-03-28] VITALS (45 sets, daily range): BP systolic 116–170; BP diastolic 70–111; PULSE 82–118; RESP 16–20; TEMP 36.1–37.1; O2SAT 78–100; BMI 26.8; BMI 28.3
--- NOTE | 2020-03-28 12:34 | ED.VISSUMM ---
- ER Visit Summary Date of Service: 03/28/20 Chief Complaint: Headache History of Present Illness: The patient is a [address] Juvenal Mendoza and Dr. Madison. She is a G1, P1 who is 8 weeks status post vaginal delivery at 41 weeks. She did have an epidural. Patient reports that she has a headache that began 2 days ago. She describes as an aching pain is 9-10 at worst and 3-10 currently. It is worsened as she is up and doing things throughout the day. It is relieved by sleeping. She denies that the headache gets acutely better or worse with position. She denies any fever. No nausea, vomiting, numbness, or change in her vision. Patient reports that her lochia is decreasing and there is no odor. She denies abdominal pain. She denies any other complaints. Physical Examination: Vitals: Stable. Afebrile. General: Well-nourished and well-developed. Head: Normocephalic atraumatic. Neck: Supple, no lymphadenopathy. No JVD. Nontender. Cardiovascular: Regular rate and rhythm. No murmurs. Respiratory: No respiratory distress. Clear to auscultation bilaterally. Abdominal: Soft, nontender, nondistended, normal bowel sounds. No guarding, rebound, or peritoneal signs. Back: Nontender. Extremities: Nontender, no edema. Skin: Normal color, no rash. Neurologic: Alert and oriented ?3. Cranial nerves II through XII are intact. Normal strength and sensation. Psych: Normal affect. Test Results: CBC shows segmented neutrophils of 71 and lymphocytes of 19. Of note her hemoglobin and platelets are normal. Chem-7 is normal. LFTs show an albumin of 2.9. Emergency Department Course and Treatment: On arrival to the emergency department patient's blood pressure was 116 systolic. However, repeat blood pressures are in the 160/110 range. Patient was given labetalol IV and started on magnesium bolus. Treatment Plan: Patient was discussed with Dr. Gordon. She will be admitted to the hospital for further evaluation and treatment. Disposition: Admitted in stable condition. Impression: 1. Preeclampsia. 2. 8 days status post vaginal delivery. This note was generated with [employer] software. It may contain incorrect words, spelling, and punctuation that were not noted in review of the chart prior to signing
[2020-03-28 12:51] LABS: Absolute Neutrophil Count 5.7 X10^3/uL (2.0-7.7); Basophil# 0.02 X10^3/uL; Basophil% 0.2 % (0-1); Eosinophil# 0.09 X10^3/uL; Eosinophils% 1.1 % (0-5); Hemoglobin 14.6 g/dL (12.0-15.0); Lymphocyte % 18.6 % (19-41); Mean Corp Hgb Conc 33.2 g/dL (32-36); Mean Corpuscular Hgb 30.2 pg (27.0-32.0); Mean Corpuscular Volume 90.9 fL (81-99); Mean Platelet Vol. 9.7 fl (6.2-12.0); Monocyte% 8.7 % (0-10); NRBC Flagged by Analyzer 0 % (0-5); Neutrophil # 5.68 X10^3/uL (2.7-7.7); Neutrophil % 70.5 % (47-70); Platelet Count 234 K/mm3 (150-450); RBC Distribution Width CV 12.2 % (11.6-14.6); RBC Distribution Width SD 40.9 fl (35.1-43.9); Red Blood Count 4.84 M/mm3 (4.2-5.4); White Blood Count 8.1 K/mm3 (4.4-11.0)
[2020-03-28 13:07] LABS: ALB/GLOB Ratio 0.7 RATIO (0.9-2.4); AST(SGOT) 19 U/L (15-37); Alanine Aminotransfer ALT/SGPT 33 U/L (13-56); Albumin, Serum 2.9 g/dL (3.2-5.0); Alkaline Phosphatase 106 U/L (45-117); Anion Gap 6 (5-15); BUN 10 mg/dL (7-18); BUN/Creat Ratio 12.5 RATIO (10-20); Calcium,Total 8.7 mg/dL (8.5-10.1); Chloride 107 mmol/L (98-107); EST Glomerular Filtration Rate 91 mL/min (>60); Est Glom Filt Rate - Afr Amer 110 mL/min (>60); Estimated Creatinine Clearance 91.21 ml/min; Globulin 4.1 g/dL (2.2-4.2); Glucose 81 mg/dL (74-106); Potassium 4.4 mmol/L (3.5-5.1); Sodium Level 139 mmol/L (136-145)
--- NOTE | 2020-03-28 13:23 | NURSING ---
WP OBS URSZULA PRE ECLAMPSIA
[2020-03-28] MEDS: Labetalol (Prefilled) 20 MG/4 ML IV (13:38)
[2020-03-28] MEDS: Lactated Ringers 1,000 ML 15 ML IV (14:20)
[2020-03-28] MEDS: Magnesium Sulfate 4gm/100mL 4 GM/100 ML IV.SOLN. IV (14:20)
[2020-03-28] MEDS: Magnesium Sulfate 4gm/100mL 2 GM/50 ML IV.SOLN. IV (14:40)
[2020-03-28] MEDS: Magnesium Sulfate 20 GM/500 ML BAG IV (14:50)
[2020-03-28] MEDS: NIFEdipine 30 MG Tablet PO (16:22)
[2020-03-28] MEDS: Metoclopramide 10 MG Tablet PO (16:22)
--- NOTE | 2020-03-28 16:53 | HP.PCM_ITS ---
- Problem List (1) Preeclampsia in period Status: Acute History and Physical Date of Admission: 03/28/20 Intake Vital Signs 03/28/20 Height 5 ft 6 in 03/28/20 Weight: 166 lb 03/28/20 BP 138/102 H 03/28/20 BMI 31.7 Intake Visit Reasons: possible spinal headache Chief Complaint: headache pp Supervisor Shearing Required: No Is patient in pain?: No Allergies No Known Allergies Allergy (Verified 03/28/20 11:49) Medications multivitamin no.47-iron fum 27 mg-folate no.1 1 mg-dha 300 mg capsule 1 cap PO DAILY 08/03/19 [History Confirmed 03/28/20] butalbital 50 mg-acetaminophen 300 mg-caffeine 40 mg-codeine 30 mg cap 1 cap PO Q4H PRN #10 cap 03/28/20 [Rx Confirmed 03/28/20] Is last menstrual period known: No Post menopausal: No Patient : No : Yes PFSH Medical History Anxiety (Acute) Surgical History History of wisdom tooth extraction, class II edentulism (Acute) Family History Brother Cancer testicular Social History (Updated 03/28/20 @ 12:[address] Jessica Gordon MD) adopted: No household members: spouse housing: house current occupational status: employed current occupation: Marketing current occupational exposures/hazards: No pets and animals: Yes history of recent travel: No sexually active: Yes Smoking Status: Never smoker second hand exposure: No alcohol intake: current details: social substance use type: does not use caffeine: Yes what type of physical activity do you participate in: walking seatbelt use: always do you feel safe at home: Yes additional social history: [employer] Patient works in [employer] HPI possible spinal headache: Details: AJ NAVARRO is a 29 year old who presents for headache that has been present over the past 2 days. Has not gone away over the past 2 days. In frontal portion of head and throbbing in nature. Worse with sitting up. Improves with lying down. Denies numbness and parasthesias. Reports light sensitivity when first started. Has tried tylenol and ibuprofen without relief. Did not have issues with BPs during or delivery. Pregancy History 0 Elective abortions Hx Para 1 Spontaneous abortions Hx # Term Pregnancies Ectopic pregnancies Hx # Pregnancies Multiple births # of living children 1 Past Pregnancies Del. Date Name GA/Weeks Outcome Route Bth Weight Infant Gen Labor Lgth Anesthesia Del [facility] Provider FOB 03/20/20 Jannie 41 live - full term NS VD Female epidural [facility] Delivery Date: 03/20/20 1st degree laceration Rox Crawley Const Constitutional: Reports headache(s); denies chills or fever(s) Eyes Eyes: Reports sensitivity to light; denies change in vision or spots in vision Cardio Card: Denies chest pain, generalized swelling or leg swelling Resp Resp: Denies dyspnea GI GI: Denies nausea or vomiting Exam Const General: cooperative, healthy appearing, comfortable, well developed, well groom ed Orientation: alert, awake, oriented x3 Neck Neck: normal visual inspection, full ROM Resp Effort & Inspection: normal respiratory effort, able to speak in complete sentences, symmetric chest movement Cardio Rate: regular rate Skin General: no rashes or lesions noted, elasticity normal, turgor normal Lesions: no lesions Rashes: no rashes Neuro General: alert, awake, oriented x3 Cranial Nerves: CN's II-XI intact bilaterally, PERRL, EOM intact bilaterally Cognition: normal cognition Speech: speech normal Gait: normal gait Extrem General: normal to inspection, full ROM, no pedal edema Psych Appearance: grossly normal Mental Status: mental status grossly normal Mood: congruent mood Affect: normal affect Speech and Movement: speech and movement normal Attitude: cooperative Thought Process: normal Thought Content: normal Assessment & Plan 1. preeclampsia Patient presents for headache. Headache persistent over last 2 days in spite of tylenol/motrin PPD#8 s/p Had epidural during labor with no issues with placement Preeclampsia labs negative in ER - will cycle q12 hours BP today 150s/100s in office - required acute treatment in ER and on arrival on labor and delivery with labetalol 20mg x2. Started on Procardia XL 30mg daily Mag sulfate ordered for seizure ppx Headache persistent after magnesium bolus - reglan ordered for headache Plan 24 hours of monitoring and magnesium sulfate. Strict I/Os and fluid restriction while on magnesium UPDATE- I have seen the patient and performed any clinically relevant updates to the history and physical exam. Jessica Gordon MD Multi Select Codes - Visit Charges Observation E&M Codin Initial observation care L2
--- NOTE | 2020-03-28 21:32 | NURSING ---
This IBCLC aware of patient's readmission. Met with this family after delivery and during a consult earlier this week. Mother reports pumping since admission is going well. Last pump was 100cc. and baby now here and mother reports she is feeling better. She has no questions or concerns at this time
[2020-03-28 21:49] LABS: Absolute Lymphocyte Count 1.86 X10^3/uL (0.83-4.51); Absolute Neutrophil Count 6.4 X10^3/uL (2.0-7.7); Basophil# 0.03 X10^3/uL; Basophil% 0.3 % (0-1); Eosinophil# 0.13 X10^3/uL; Eosinophils% 1.4 % (0-5); Hematocrit 44.9 % (37-47); Lymphocyte # 1.86 X10^3/ul (4.0); Lymphocyte % 20.1 % (19-41); Mean Corp Hgb Conc 33.4 g/dL (32-36); Mean Corpuscular Hgb 30.2 pg (27.0-32.0); Mean Corpuscular Volume 90.5 fL (81-99); Mean Platelet Vol. 9.5 fl (6.2-12.0); Monocyte# 0.79 X10^3/uL; Monocyte% 8.5 % (0-10); NRBC Flagged by Analyzer 0 % (0-5); Neutrophil # 6.42 X10^3/uL (2.7-7.7); Neutrophil % 69.3 % (47-70); Platelet Count 255 K/mm3 (150-450); RBC Distribution Width CV 12.1 % (11.6-14.6); RBC Distribution Width SD 40.2 fl (35.1-43.9); Red Blood Count 4.96 M/mm3 (4.2-5.4); White Blood Count 9.3 K/mm3 (4.4-11.0)
[2020-03-28 22:12] LABS: ALB/GLOB Ratio 0.7 RATIO (0.9-2.4); AST(SGOT) 17 U/L (15-37); Alanine Aminotransfer ALT/SGPT 31 U/L (13-56); Alkaline Phosphatase 110 U/L (45-117); Anion Gap 8 (5-15); BUN 9 mg/dL (7-18); BUN/Creat Ratio 13.9 RATIO (10-20); Calcium,Total 7.7 mg/dL (8.5-10.1); Chloride 105 mmol/L (98-107); Creatinine, Serum 0.65 mg/dL (0.55-1.02); EST Glomerular Filtration Rate 116 mL/min (>60); Est Glom Filt Rate - Afr Amer 140 mL/min (>60); Estimated Creatinine Clearance 112.26 ml/min; Globulin 4.4 g/dL (2.2-4.2); Glucose 96 mg/dL (74-106); Potassium 4.1 mmol/L (3.5-5.1); Protein, Total 7.4 g/dL (6.4-8.2); Sodium Level 139 mmol/L (136-145)
[2020-03-29] VITALS (27 sets, daily range): BP systolic 108–131; BP diastolic 59–84; PULSE 82–139; RESP 12–16; TEMP 36.1–36.8; O2SAT 84–100
[2020-03-29] MEDS: Magnesium Sulfate 20 GM/500 ML BAG IV (00:31)
[2020-03-29] MEDS: Acetaminophen 500 MG Tablet 1000 MG PO (00:42)
--- NOTE | 2020-03-29 09:53 | PN.OBGYN_ITS ---
Patient Problems: Active and Suspected Problems (Last Reviewed 03/28/20 @ 11:50 by Coreen Lira) Preeclampsia in period (Acute) Subjective: Patient day 9 admitted with preeclampsia. Reports feeling lightheaded and exhausted. Reports that headache is completely resolved. Denies vision changes, chest pain, shortness of breath, right upper quadrant, epigastric pain. Objective: Laboratory Tests 03/28/20 03/28/20 03/28/20 Range/Units Unknown 21:35 21:35 WBC 9.3 (4.4-11.0) K/mm3 RBC 4.96 (4.2-5.4) M/mm3 Hgb 15.0 (12.0-15.0) g/dL Hct 44.9 (37-47) % MCV 90.5 (81-99) fL MCH 30.2 (27.0-32.0) pg MCHC 33.4 (32-36) g/dL RDW Std Deviation 40.2 (35.1-43.9) fl RDW Coeff of [place] 12.1 (11.6-14.6) % Plt Count 255 (150-450) K/mm3 MPV 9.5 (6.2-12.0) fl Immature Gran % (Auto) 0.400 (0.0-0.9) % Neut % (Auto) 69.3 (47-70) % Lymph % (Auto) 20.1 (19-41) % [place] % (Auto) 8.5 (0-10) % Eos % (Auto) 1.4 (0-5) % Baso % (Auto) 0.3 (0-1) % Absolute Neuts (auto) 6.4 (2.0-7.7) X10^3/uL Absolute Lymphs (auto) 1.86 (0.83-4.51) X10^3/uL Nucleated RBC % 0 (0-5) % Sodium 139 (136-145) mmol/L Potassium 4.1 (3.5-5.1) mmol/L Chloride 105 (98-107) mmol/L Carbon Dioxide 26.0 (21.0-32.0) mmol/L Anion Gap 8 (5-15) BUN 9 (7-18) mg/dL Creatinine 0.65 (0.55-1.02) mg/dL Estim Creat Clear Calc 112.26 ml/min Est GFR (MDRD) Af Amer 140 (>60) mL/min Est GFR (MDRD) Non-Af 116 (>60) mL/min BUN/Creatinine Ratio 13.9 (10-20) RATIO Glucose 96 (74-106) mg/dL Calcium 7.7 L (8.5-10.1) mg/dL Total Bilirubin 0.40 (0.20-1.00) mg/dL AST 17 (15-37) U/L ALT 31 (13-56) U/L Alkaline Phosphatase 110 (45-117) U/L Total Protein 7.4 (6.4-8.2) g/dL Albumin 3.0 L (3.2-5.0) g/dL Globulin 4.4 H (2.2-4.2) g/dL Albumin/Globulin Ratio 0.7 L (0.9-2.4) RATIO Urine Color Cancelled Urine Clarity Cancelled Urine pH Cancelled Ur Specific [place] Cancelled U Specif Grav (Refrac) Cancelled Urine Protein Cancelled Urine Glucose (UA) Cancelled Urine Ketones Cancelled Urine Occult Blood Cancelled Urine Nitrite Cancelled Urine Bilirubin Cancelled Urine Urobilinogen Cancelled Ur Leukocyte Esterase Cancelled 03/28/20 03/28/20 Range/Units 12:43 12:43 WBC 8.1 (4.4-11.0) K/mm3 RBC 4.84 (4.2-5.4) M/mm3 Hgb 14.6 (12.0-15.0) g/dL Hct 44.0 (37-47) % MCV 90.9 (81-99) fL MCH 30.2 (27.0-32.0) pg MCHC 33.2 (32-36) g/dL RDW Std Deviation 40.9 (35.1-43.9) fl RDW Coeff of [place] 12.2 (11.6-14.6) % Plt Count 234 (150-450) K/mm3 MPV 9.7 (6.2-12.0) fl Immature Gran % (Auto) 0.900 (0.0-0.9) % Neut % (Auto) 70.5 H (47-70) % Lymph % (Auto) 18.6 L (19-41) % [place] % (Auto) 8.7 (0-10) % Eos % (Auto) 1.1 (0-5) % Baso % (Auto) 0.2 (0-1) % Absolute Neuts (auto) 5.7 (2.0-7.7) X10^3/uL Absolute Lymphs (auto) 1.50 (0.83-4.51) X10^3/uL Nucleated RBC % 0 (0-5) % Sodium 139 (136-145) mmol/L Potassium 4.4 (3.5-5.1) mmol/L Chloride 107 (98-107) mmol/L Carbon Dioxide 26.0 (21.0-32.0) mmol/L Anion Gap 6 (5-15) BUN 10 (7-18) mg/dL Creatinine 0.80 (0.55-1.02) mg/dL Estim Creat Clear Calc 91.21 ml/min Est GFR (MDRD) Af Amer 110 (>60) mL/min Est GFR (MDRD) Non-Af 91 (>60) mL/min BUN/Creatinine Ratio 12.5 (10-20) RATIO Glucose 81 (74-106) mg/dL Calcium 8.7 (8.5-10.1) mg/dL Total Bilirubin 0.40 (0.20-1.00) mg/dL AST 19 (15-37) U/L ALT 33 (13-56) U/L Alkaline Phosphatase 106 (45-117) U/L Total Protein 7.0 (6.4-8.2) g/dL Albumin 2.9 L (3.2-5.0) g/dL Globulin 4.1 (2.2-4.2) g/dL Albumin/Globulin Ratio 0.7 L (0.9-2.4) RATIO Urine Color Urine Clarity Urine pH Ur Specific [place] U Specif Grav (Refrac) Urine Protein Urine Glucose (UA) Urine Ketones Urine Occult Blood Urine Nitrite Urine Bilirubin Urine Urobilinogen Ur Leukocyte Esterase - Physical Exam Vitals/I&O's: Vital Signs Temp Pulse Resp BP Pulse Ox 97.5 F L 93 14 122/76 H 98 03/29/20 08:32 03/29/20 09:35 03/29/20 08:32 03/29/20 09:35 03/29/20 09:34 Oxygen Flow Rate (L/min) 0 Oxygen Delivery Method Room Air Weight: 165 lb Body Mass Index (BMI) 28.3 Intake and Output for Last 24 Hours 03/27/20 03/28/20 03/29/20 23:59 23:59 23:59 Intake Total 1750.00 / 1750.00 1257.48 / 1257.48 Output Total 1150 / 1150 800 / 800 Balance 600.00 / 600.00 457.48 / 457.48 General: Alert, Oriented x3, Cooperative, No apparent distress, Well developed, Well nourished HEENT: Atraumatic, PERRLA, EOMI, Normocephalic Neck: Supple, No JVD Lungs: Normal air movement Cardiovascular: Regular rate Abdomen: Soft, Non Tender, Non-Distended Extremities: No edema, No Calf Tenderness Neurological: Cranial nerves II-XII grossly intact, Deep Tendon Reflexes 2+/4 and Symmetrical, Neuro grossly intact Psych/Mental Status: Normal Affect, Appropriate Laboratory Results 03/28/20 12:43: WBC 8.1, RBC 4.84, Hgb 14.6, Hct 44.0, MCV 90.9, MCH 30.2, MCHC 33.2, RDW Std Deviation 40.9, RDW Coeff of [place] 12.2, Plt Count 234, MPV 9.7, Immature Gran % (Auto) 0.900, Neut % (Auto) 70.5 H, Lymph % (Auto) 18.6 L, [place] % (Auto) 8.7, Eos % (Auto) 1.1, Baso % (Auto) 0.2, Absolute Neuts (auto) 5.7, Absolute Lymphs (auto) 1.50, Nucleated RBC % 0 03/28/20 12:43: Sodium 139, Potassium 4.4, Chloride 107, Carbon Dioxide 26.0, Anion Gap 6, BUN 10, Creatinine 0.80, Estim Creat Clear Calc 91.21, Est GFR (MDRD) Af Amer 110, Est GFR (MDRD) Non-Af 91, BUN/Creatinine Ratio 12.5, Glucose 81, Calcium 8.7, Total Bilirubin 0.40, AST 19, ALT 33, Alkaline Phosphatase 106, Total Protein 7.0, Albumin 2.9 L, Globulin 4.1, Albumin/Globulin Ratio 0.7 L 03/28/20 21:35: WBC 9.3, RBC 4.96, Hgb 15.0, Hct 44.9, MCV 90.5, MCH 30.2, MCHC 33.4, RDW Std Deviation 40.2, RDW Coeff of [place] 12.1, Plt Count 255, MPV 9.5, Immature Gran % (Auto) 0.400, Neut % (Auto) 69.3, Lymph % (Auto) 20.1, [place] % (Auto) 8.5, Eos % (Auto) 1.4, Baso % (Auto) 0.3, Absolute Neuts (auto) 6.4, Absolute Lymphs (auto) 1.86, Nucleated RBC % 0 03/28/20 21:35: Sodium 139, Potassium 4.1, Chloride 105, Carbon Dioxide 26.0, Anion Gap 8, BUN 9, Creatinine 0.65, Estim Creat Clear Calc 112.26, Est GFR (MDRD) Af Amer 140, Est GFR (MDRD) Non-Af 116, BUN/Creatinine Ratio 13.9, Glucose 96, Calcium 7.7 L, Total Bilirubin 0.40, AST 17, ALT 31, Alkaline Phosphatase 110, Total Protein 7.4, Albumin 3.0 L, Globulin 4.4 H, Albumin/Globulin Ratio 0.7 L 03/28/20 : Urine Color Cancelled, Urine Clarity Cancelled, Urine pH Cancelled, U r Specific [place] Cancelled, U Specif Grav (Refrac) Cancelled, Urine Protein Cancelled, Urine Glucose (UA) Cancelled, Urine Ketones Cancelled, Urine Occult Blood Cancelled, Urine Nitrite Cancelled, Urine Bilirubin Cancelled, Urine Urobilinogen Cancelled, Ur Leukocyte Esterase Cancelled Current Medications Acetaminophen (Acetaminophen 500 Mg Tablet) 1,000 mg PO Q8H PRN PRN PRN Reason: Pain score 1-3/10 or fever Last Admin: 03/29/20 00:42 Dose: 1,000 mg Documented by: Hydralazine HCl (Hydralazine 20 Mg/Ml Vial) 10 mg IV X1 PRN PRN Reason: Elevated BP Magnesium Sulfate (20gm/500ml) 20 gm in 500 mls @ 50 mls/hr IV .Q10H [facility] Last Infusion: 03/29/20 08:35 Dose: 2 gm/hr, 50 mls/hr Documented by: Lactated Ringer's () 1,000 mls @ 15 mls/hr IV .Q48H [facility] Last Admin: 03/28/20 14:20 Dose: 15 mls/hr Documented by: Labetalol HCl (Labetalol (Prefilled) 20 Mg/4 Ml) 40 mg IV X1 PRN PRN Reason: Elevated BP Labetalol HCl (Labetalol 100 Mg/20 Ml Vial) 80 mg IV X1 PRN PRN Reason: Elevated BP Labetalol HCl (Labetalol (Prefilled) 20 Mg/4 Ml) 20 mg IV X1 PRN PRN Reason: Elevated BP Nifedipine (Nifedipine 30 Mg Tablet) 30 mg PO DAILY [facility] Last Admin: 03/28/20 16:22 Dose: 30 mg Documented by: Ondansetron HCl (Ondansetron 4 Mg/2 Ml Vial) 4 mg IV Q4H PRN PRN PRN Reason: NAUSEA Prochlorperazine Edisylate (Prochlorperazine 10 Mg/2 Ml Vial) 10 mg IV Q6H PRN PRN PRN Reason: NAUSEA Medical Necessity - Tobacco Use Smoking Status: Never smoker Assessment/Plan All Active Problems (Last Reviewed 03/28/20 @ 11:50 by Coreen Lira) Preeclampsia in period (Acute) Contraceptive management (Acute) PROM (premature rupture of membranes) (Acute) Positive GBS test (Acute) 36 weeks gestation of (Acute) COVID-19 virus detected (Acute) Influenza vaccine administered (Acute) Elevated TSH (Acute) Anxiety (Acute) Supervision of normal first (Acute) (Acute) 29-year-old G1, P1 day 8 from a vaginal delivery admitted for preeclampsia preeclampsia -Blood pressures normotensive overnight on Procardia XL 30 mg daily. -Repeat labs yesterday evening stable. Repeat labs ordered for this morning. -Patient now asymptomatic. -Urine output adequate, however has not been able to void since midnight. Bladder feels extremely full. Discussed with RN that if unable to void spontaneously can consider straight cath x1. -Given the patient feeling exhausted and lightheaded on magnesium, will discontinue magnesium early. Discussed with patient that if blood pressures remain stable and headache remains gone can consider discharge to home this evening. Multi Select Codes - Visit Charges Observation E&M Codin Observation care discharge
--- NOTE | 2020-03-29 09:59 | DCINST_ITS ---
- Discharge Diagnoses Current Active Problems: Current Active and Chronic Problems (Last Reviewed 03/28/20 @ 11:50 by Coreen Lira) Preeclampsia in period (Acute) You will use the following diet at home:: No restrictions, Regular Discharge Activity: Return to Normal Activity May resume sexual activity in: 4-6 weeks Call your doctor if your incision/area has: Continuous Slow Oozing, Sudden Increased Bleeding, Foul Smelling Discharge Call your doctor if you observe: Fever of 101 or Higher, Numbness or Tingling, Shortness of breath, Dizziness, Fainting spells, Chest pain, - - Headache refractory to treatment with Tylenol Allergies/Adverse Reactions: Allergies No Known Allergies Allergy (Verified 03/28/20 11:49) Medications to take at Discharge multivitamin no.47-iron fum 27 mg-folate no.1 1 mg-dha 300 mg capsule 1 cap PO DAILY 08/03/19 Naproxen [Naprosyn] 250 - 500 mg PO Q8H PRN 03/28/20 butalbital 50 mg-acetaminophen 300 mg-caffeine 40 mg-codeine 30 mg cap 1 cap PO Q4H PRN #10 cap 03/28/20 Primary Care Physician: Care Physician,No Primary [Primary Care Provider] - Test Results: Test results from this visit will be discussed in further detail at your follow- up appointment, if applicable.
[2020-03-29] MEDS: NIFEdipine 30 MG Tablet PO (10:11)
[2020-03-29 11:36] LABS: Absolute Lymphocyte Count 1.64 X10^3/uL (0.83-4.51); Absolute Neutrophil Count 5.9 X10^3/uL (2.0-7.7); Basophil# 0.02 X10^3/uL; Basophil% 0.2 % (0-1); Eosinophil# 0.16 X10^3/uL; Eosinophils% 1.9 % (0-5); Hematocrit 44.4 % (37-47); Hemoglobin 14.7 g/dL (12.0-15.0); Lymphocyte # 1.64 X10^3/ul (4.0); Lymphocyte % 19.2 % (19-41); Mean Corp Hgb Conc 33.1 g/dL (32-36); Mean Corpuscular Hgb 30.4 pg (27.0-32.0); Mean Corpuscular Volume 91.7 fL (81-99); Mean Platelet Vol. 9.4 fl (6.2-12.0); Monocyte# 0.76 X10^3/uL; Monocyte% 8.9 % (0-10); NRBC Flagged by Analyzer 0 % (0-5); Neutrophil # 5.91 X10^3/uL (2.7-7.7); Neutrophil % 69.3 % (47-70); Platelet Count 265 K/mm3 (150-450); RBC Distribution Width CV 12.5 % (11.6-14.6); RBC Distribution Width SD 42.2 fl (35.1-43.9); Red Blood Count 4.84 M/mm3 (4.2-5.4); White Blood Count 8.5 K/mm3 (4.4-11.0)
--- NOTE | 2020-03-29 13:58 | NURSING ---
Patient woke up from nap. States she feels much better after being off of magnesium. Denies headache, visual disturbances, nausea or abdominal pain. Eating meal at this time.
--- NOTE | 2020-03-29 16:12 | PCM.PN.BLA ---
Progress Note Patient's BPs remain normotensive since stopping magnesium. Remains asymptomatic. Repeat this am normal. Will discharge to home with plans for BP check on Wednesday. STROKE Vital Signs/Narrative: Vital Signs Temp Pulse Resp BP BP Pulse Ox 03/29/20 15:55 105 H 14 115/76 96 03/29/20 15:54 104 H 115/76 97 03/29/20 13:54 97.1 F L 99 14 131/84 H 131/84 H 99
--- NOTE | 2020-03-29 16:13 | DS.PCM_ITS ---
Discharge Date and Diagnosis - Problem List Patient Problems: Active and Suspected Problems (Last Reviewed 03/28/20 @ 11:50 by Coreen Lira) Preeclampsia in period (Acute) Date of Admission: 03/28/20 Date of Discharge: 03/29/20 - Primary Discharge Diagnosis Acute Problems: Active Problems (Last Reviewed 03/28/20 @ 11:50 by Coreen Lira) Preeclampsia in period (Acute) Hospital Course and Treatment Operations: None Procedures: None Summary of Care Provided: The patient is a 29 year old F admitted to the hospital day 8 from a spontaneous vaginal delivery due to headache and severe range blood pressures in the emergency department. Preeclampsia labs on admission were negative. Labs were cycled every 12 hours and remained stable. She required acute treatment for elevated blood pressure on admission with labetalol 20 mg x 2 doses and was started on Procardia XL 30 mg daily. Her blood pressures remained stable on this medication. She had a headache initially on admission that have been present for the past 2 days. She was treated with magnesium sulfate for seizure prophylaxis for 18 hours and her blood pressures remained stable and her headache completely resolved. She was monitored inpatient for 6 hours after discontinuation of magnesium sulfate and her blood pressures remained normotensive and she did not develop any further symptoms of preeclampsia. She was discharged home in stable condition with plan to follow-up in the office for blood pressure check next week. Patient Problems: Active and Suspected Problems (Last Reviewed 03/28/20 @ 11:50 by Coreen Lira) Preeclampsia in period (Acute) - Physical Exam Vitals/I&O's: Vital Signs Temp Pulse Resp BP Pulse Ox 97.1 F L 105 H 14 115/76 96 03/29/20 13:54 03/29/20 15:55 03/29/20 15:55 03/29/20 15:55 03/29/20 15:55 Oxygen Flow Rate (L/min) 0 Oxygen Delivery Method Room Air Weight: 165 lb Body Mass Index (BMI) 28.3 Intake and Output for Last 24 Hours 03/27/20 03/28/20 03/29/20 23:59 23:59 23:59 Intake Total 1750.00 / 1750.00 1774.99 / 1774.99 Output Total 1150 / 1150 1800 / 1800 Balance 600.00 / 600.00 -25.01 / -25.01 Laboratory Results 03/28/20 21:35: WBC 9.3, RBC 4.96, Hgb 15.0, Hct 44.9, MCV 90.5, MCH 30.2, MCHC 33.4, RDW Std Deviation 40.2, RDW Coeff of [place] 12.1, Plt Count 255, MPV 9.5, Immature Gran % (Auto) 0.400, Neut % (Auto) 69.3, Lymph % (Auto) 20.1, [place] % (Auto) 8.5, Eos % (Auto) 1.4, Baso % (Auto) 0.3, Absolute Neuts (auto) 6.4, Absolute Lymphs (auto) 1.86, Nucleated RBC % 0 03/28/20 21:35: Sodium 139, Potassium 4.1, Chloride 105, Carbon Dioxide 26.0, Anion Gap 8, BUN 9, Creatinine 0.65, Estim Creat Clear Calc 112.26, Est GFR (MDRD) Af Amer 140, Est GFR (MDRD) Non-Af 116, BUN/Creatinine Ratio 13.9, Glucose 96, Calcium 7.7 L, Total Bilirubin 0.40, AST 17, ALT 31, Alkaline Phosphatase 110, Total Protein 7.4, Albumin 3.0 L, Globulin 4.4 H, Albumin/Globulin Ratio 0.7 L 03/28/20 : Urine Color Cancelled, Urine Clarity Cancelled, Urine pH Cancelled, Ur Specific [place] Cancelled, U Specif Grav (Refrac) Cancelled, Urine Protein Cancelled, Urine Glucose (UA) Cancelled, Urine Ketones Cancelled, Urine Occult Blood Cancelled, Urine Nitrite Cancelled, Urine Bilirubin Cancelled, Urine Urobilinogen Cancelled, Ur Leukocyte Esterase Cancelled 03/29/20 11:27: WBC 8.5, RBC 4.84, Hgb 14.7, Hct 44.4, MCV 91.7, MCH 30.4, MCHC 33.1, RDW Std Deviation 42.2, RDW Coeff of [place] 12.5, Plt Count 265, MPV 9.4, Immature Gran % (Auto) 0.500, Neut % (Auto) 69.3, Lymph % (Auto) 19.2, [place] % (Auto) 8.9, Eos % (Auto) 1.9, Baso % (Auto) 0.2, Absolute Neuts (auto) 5.9, Absolute Lymphs (auto) 1.64, Nucleated RBC % 0 Current Medications Acetaminophen (Acetaminophen 500 Mg Tablet) 1,000 mg PO Q8H PRN PRN PRN Reason: Pain score 1-3/10 or fever Last Admin: 03/29/20 00:42 Dose: 1,000 mg Documented by: Hydralazine HCl (Hydralazine 20 Mg/Ml Vial) 10 mg IV X1 PRN PRN Reason: Elevated BP Magnesium Sulfate (20gm/500ml) 20 gm in 500 mls @ 50 mls/hr IV .Q10H [facility] Last Infusion: 03/29/20 10:08 Dose: Infused Documented by: Lactated Ringer's () 1,000 mls @ 15 mls/hr IV .Q48H [facility] Last Admin: 03/28/20 14:20 Dose: 15 mls/hr Documented by: Labetalol HCl (Labetalol (Prefilled) 20 Mg/4 Ml) 40 mg IV X1 PRN PRN Reason: Elevated BP Labetalol HCl (Labetalol 100 Mg/20 Ml Vial) 80 mg IV X1 PRN PRN Reason: Elevated BP Labetalol HCl (Labetalol (Prefilled) 20 Mg/4 Ml) 20 mg IV X1 PRN PRN Reason: Elevated BP Nifedipine (Nifedipine 30 Mg Tablet) 30 mg PO DAILY [facility] Last Admin: 03/29/20 10:11 Dose: 30 mg Documented by: Ondansetron HCl (Ondansetron 4 Mg/2 Ml Vial) 4 mg IV Q4H PRN PRN PRN Reason: NAUSEA Prochlorperazine Edisylate (Prochlorperazine 10 Mg/2 Ml Vial) 10 mg IV Q6H PRN PRN PRN Reason: NAUSEA Discharge Activity: Return to Normal Activity May resume sexual activity in: 4-6 weeks Call your doctor if your incision/area has: Continuous Slow Oozing, Sudden Increased Bleeding, Foul Smelling Discharge Call your doctor if you observe: Fever of 101 or Higher, Numbness or Tingling, Shortness of breath, Dizziness, Fainting spells, Chest pain, - - Headache refractory to treatment with Tylenol Home Medications: Medications to take at Discharge multivitamin no.47-iron fum 27 mg-folate no.1 1 mg-dha 300 mg capsule 1 cap PO DAILY 05/07/20 Naproxen [Naprosyn] 250 - 500 mg PO Q8H PRN 03/28/20 Nifedipine [Nifedipine ER] 30 mg PO DAILY #30 tab.er.24 03/29/20 Following Prescriptions Were Given to Patient: Nifedipine [Nifedipine ER] 30 mg PO DAILY #30 tab.er.24 Transmission Status: Pending to [id number] Primary Care Physician: Care Physician,No Primary [Primary Care Provider] - Medical Necessity - Tobacco Use Smoking Status: Never smoker Meaningful Use Info Meaningful Use Diagnoses (Choose all that apply): None applicable
== END 2020-03-29 17:15 | disposition home or self-care (01) ==
LOC: ED 12:33 → WP 14:08
PROVIDERS: Admitting Provider Obstetrics & Gynecology; Emergency Provider Emergency Medicine; Visit Provider Obstetrics & Gynecology
DX: O14.95 Unspecified pre-eclampsia, complicating the puerperium (principal)
CPT/HCPCS: 96361; 96365; 96366 ×2; 96375; 36415; 80053; 85025; 99218; 99283; J7040; J7120; A4216; G0378

== ENCOUNTER → 2022-05-11 | Outpatient (CLI) | payer OTHER, SELFPAY ==
[2022-05-18 19:26] LABS: HPV Reflexed? NOT INDICATED
== END | disposition home or self-care (01) ==
LOC: LABSPEC 13:18
PROVIDERS: Referring Provider Obstetrics & Gynecology; Visit Provider Obstetrics & Gynecology
DX: Z12.4 Encounter for screening for malignant neoplasm of cervix (principal); N89.8 Other specified noninflammatory disorders of vagina
CPT/HCPCS: 87070; 87205; 88175; G0145

== ENCOUNTER → 2023-04-19 | Outpatient (CLI) | payer OTHER, SELFPAY ==
[2023-04-19 11:31] LABS: Absolute Lymphocyte Count 1.83 X10^3/uL (0.83-4.51); Absolute Neutrophil Count 7.1 X10^3/uL (2.0-7.7); Basophil# 0.03 X10^3/uL; Basophil% 0.3 % (0-1); Eosinophil# 0.02 X10^3/uL; Eosinophils% 0.2 % (0-5); Lymphocyte # 1.83 X10^3/ul (0.83-4.51); Lymphocyte % 19.4 % (19-41); Mean Corp Hgb Conc 31.8 g/dL (32-36); Mean Corpuscular Hgb 28.2 pg (27.0-32.0); Mean Corpuscular Volume 88.7 fL (81-99); Mean Platelet Vol. 10.7 fl (6.2-12.0); Monocyte# 0.47 X10^3/uL; NRBC Flagged by Analyzer 0 % (0-5); Neutrophil # 7.06 X10^3/uL (2.7-7.7); Neutrophil % 74.8 % (47-70); Platelet Count 204 K/mm3 (150-450); RBC Distribution Width CV 12.6 % (11.6-14.6); RBC Distribution Width SD 40.9 fl (35.1-43.9); Red Blood Count 4.96 M/mm3 (4.2-5.4); White Blood Count 9.4 K/mm3 (4.4-11.0)
[2023-04-19 12:13] LABS: ALB/GLOB Ratio 0.9 RATIO (0.9-2.4); AST(SGOT) 14 U/L (15-37); Alanine Aminotransfer ALT/SGPT 21 U/L (13-56); Albumin, Serum 3.4 g/dL (3.2-5.0); Alkaline Phosphatase 51 U/L (45-117); Anion Gap 5 (5-15); BUN 6 mg/dL (7-18); BUN/Creat Ratio 10.1 RATIO (10-20); Calcium,Total 8.7 mg/dL (8.5-10.1); Chloride 108 mmol/L (98-107); EST Glomerular Filtration Rate 125 mL/min (>60); Est Glom Filt Rate - Afr Amer 151 mL/min (>60); Globulin 3.6 g/dL (2.2-4.2); Glucose 90 mg/dL (74-106); Potassium 3.9 mmol/L (3.5-5.1); Sodium Level 137 mmol/L (136-145)
[2023-04-19 12:52] LABS: HIV - WCH Non-Reactive (Nonreactive); Hepatitis B Surface Antigen Non-Reactive (Nonreactive); Hepatitis C Antibody Non-Reactive (Nonreactive); Rubella IgG Reactive (Nonreactive); Syphilis Antibodies Non-reactive
[2023-04-19 17:46] LABS: Creatinine, Urine (random) < 13.00 mg/dL (NO RANGE EST.); Protein, Urine (Random) < 6.0 mg/dL (<11.9)
[2023-04-22 21:07] LABS: Chlamydia By Nucleic Acid AMP Negative (Negative); Gonococcus By Nucleic Acid AMP Negative (Negative)
== END | disposition home or self-care (01) ==
PROVIDERS: Visit Provider Obstetrics & Gynecology
DX: O09.299 Supervision of pregnancy with other poor reproductive or obstetric history, unspecified trimester (principal); Z3A.00 Weeks of gestation of pregnancy not specified
CPT/HCPCS: 36415; 80053; 82570; 84156; 85025; 86703; 86762; 86780; 86803; 86850; 86900; 86901; 87086; 87088; 87340; 87491; 87591

== ENCOUNTER → 2023-08-30 | Outpatient (CLI) | payer OTHER, SELFPAY ==
[2023-08-30 10:47] LABS: Absolute Lymphocyte Count 1.59 X10^3/uL (0.83-4.51); Absolute Neutrophil Count 6.5 X10^3/uL (2.0-7.7); Basophil# 0.01 X10^3/uL; Basophil% 0.1 % (0-1); Eosinophil# 0.06 X10^3/uL; Eosinophils% 0.7 % (0-5); Hematocrit 37.8 % (37-47); Hemoglobin 12.5 g/dL (12.0-15.0); Lymphocyte # 1.59 X10^3/ul (0.83-4.51); Lymphocyte % 18.3 % (19-41); Mean Corp Hgb Conc 33.1 g/dL (32-36); Mean Corpuscular Hgb 30.5 pg (27.0-32.0); Mean Corpuscular Volume 92.2 fL (81-99); Mean Platelet Vol. 10.2 fl (6.2-12.0); Monocyte# 0.43 X10^3/uL; NRBC Flagged by Analyzer 0 % (0-5); Neutrophil # 6.53 X10^3/uL (2.7-7.7); Neutrophil % 75.3 % (47-70); Platelet Count 151 K/mm3 (150-450); RBC Distribution Width CV 13.1 % (11.6-14.6); RBC Distribution Width SD 43.7 fl (35.1-43.9); White Blood Count 8.7 K/mm3 (4.4-11.0)
[2023-08-30 11:14] LABS: Glucose Challenge Gest 1H 50g 121 mg/dL (70-140)
[2023-08-30 11:48] LABS: HIV - WCH Non-Reactive (Nonreactive); Syphilis Antibodies Non-reactive
== END | disposition home or self-care (01) ==
PROVIDERS: Referring Provider Obstetrics & Gynecology; Visit Provider Obstetrics & Gynecology
DX: O09.90 Supervision of high risk pregnancy, unspecified, unspecified trimester (principal); Z3A.00 Weeks of gestation of pregnancy not specified; Z13.1 Encounter for screening for diabetes mellitus
CPT/HCPCS: 36415; 82950; 85025; 86703; 86780

== ENCOUNTER → 2023-08-31 | Outpatient (CLI) | payer OTHER, SELFPAY ==
--- NOTE | 2023-08-31 08:53 | US_ITS ---
STUDY: SECOND AND THIRD TRIMESTER OBSTETRICAL ULTRASOUND REASON FOR EXAM: Female, 33 years old placental placement -- 28 wks LMP: February 15, 2023. TECHNIQUE: Transabdominal TECHNICAL QUALITY: Adequate. PRIOR ULTRASOUND: None. FINDINGS: There is a single intrauterine fetus. The fetus is in a breech presentation. There is demonstrated cardiac activity with a heart rate of 154 bpm. There is a normal amniotic fluid volume. The largest amniotic fluid pocket measures 7.9 cm. The amniotic fluid index (SAMARA) is within normal limits. The placenta is posterior in location and is not low lying. There are Grade 0 placental changes. The cervix measures 4.8 cm in length. The adnexal regions are not visualized. BIOMETRY: Age by LMP: 28 weeks, 1 days. BHAVESH by LMP: November 22, 2023.. US/OB Limited (No Biometrics) IMPRESSION: The placenta is posterior in location. It is not low-lying. Electronically Signed: Elvis Quintero MD at 14:52 EDT ,
== END | disposition home or self-care (01) ==
LOC: US 08:53
PROVIDERS: Referring Provider Nurse Practitioner Women's Health; Visit Provider Nurse Practitioner Women's Health
DX: O44.41 Low lying placenta NOS or without hemorrhage, first trimester (principal)
CPT/HCPCS: 76815